=== PATIENT | female | born 1990 | race Caucasian/White ===

== ENCOUNTER 2016-09-24 07:42 | Emergency (ER) | payer BC ==
[2016-09-24 08:36] VITALS: BP 144/74
--- NOTE | 2016-09-24 08:39 | UC ---
Respiratory Complaint HPI - HPI Summary HPI Summary: The patient comes in today for: 1. Cough, sore throat, chest pain: Onset: Yesterday. Palliative/provocative: Eating cough drops helps. Quality: Barking, Region: [place]. Severity: 8/10 with coughing. Time: Cough lasts a few seconds. Associated symptoms: Chest pain: A pressure of the chest, but she states that it is only present with coughing. Fevers: None. Cough: clear mucous. Rhinitis: None. Sore throat is present, but no known strep exposure. * - History of Current Complaint Chief Complaint: UCRespiratory Stated Complaint: COUGH,CONGESTION Time Seen by Provider: 09/24/16 08:19 Hx Obtained From: Patient Hx Last Menstrual Period: Nexplanon ?: No - Allergies/Home Medications Allergies/Adverse Reactions: Allergies Allergy/AdvReac Type Severity Reaction Status Date / Time Amoxicillin Allergy Rash Verified 09/24/16 08:16 Sulfamethoxazole Allergy Rash Verified 09/24/16 08:16 w/Trimethoprim [From Bactrim] Home Medications: Home Medications Acetaminophen 1,000 mg PO Q6H PRN 09/24/16 [History Confirmed 09/24/16] Nexplanon ONCE 09/24/16 [History] Pseudoephedrine HCL ER TAB* [Sudafed 12 Hour*] 120 mg PO BID PRN 09/24/16 [ History Confirmed 09/24/16] PMH/Surg Hx/FS Hx/Imm Hx Previously Healthy: Yes Endocrine History Of: Denies: Diabetes, Thyroid Disease, Hyperthyroidism, Hypothyroidism, Dyslipidemia Cardiovascular History Of: Denies: Cardiac Disorders, Hypertension, Pacemaker/ICD, Myocardial Infarction , Congestive Heart Failure, Atrial Fibrillation, Deep Vein Thrombosis, Bleeding Disorders Respiratory History Of: Denies: COPD, Asthma, Bronchitis, Pneumonia, Pulmonary Embolism GI/ History Of: Denies: Gastroesophageal Reflux, Ulcer, Gastrointestinal Bleed, Gall Bladder Disease, Kidney Stones, Diverticulitis, Renal Disease, Urosepsis Neurological History Of: Denies: TIA, CVA, Dementia, Seizures, Migraine Psychological History Of: Denies: Anxiety, Depression, Bipolar Disorder, Schizophrenia, Post Traumatic Stress Disorder Cancer History Of: Denies: Lung Cancer, Colorectal Cancer, Breast Cancer, Prostate Cancer, Cervical Cancer Other History Of: Negative For: HIV, Hepatitis B, Hepatitis C, Anticoagulant Therapy - Surgical History Surgical History: None - Family History Known Family History: Positive: Hypertension Negative: Cardiac Disease - Social History Occupation: Employed Full-time Alcohol Use: Rare Substance Use Type: None Smoking Status (MU): Never Smoked Tobacco - Immunization History Most Recent Influenza Vaccination: 2016 Review of Systems Constitutional: Negative Skin: Negative Eyes: Negative ENT: Sore Throat Respiratory: Cough Cardiovascular: Chest Pain Gastrointestinal: Negative Genitourinary: Negative All Other Systems Reviewed And Are Negative: Yes Physical Exam Triage Information Reviewed: Yes Appearance: Well-Appearing, No Pain Distress, Well-Nourished Vital Signs: Initial Vital Signs Temp 99.4 F 09/24/16 08:18 Pulse 111 09/24/16 08:18 Resp 18 09/24/16 08:18 BP 144/74 09/24/16 08:18 Pulse Ox 100 09/24/16 08:18 Vital Signs Reviewed: Yes Eyes: Positive: Conjunctiva Clear. Negative: Discharge ENT: Positive: Hearing grossly normal. Negative: Pharyngeal erythema, Nasal congestion, Nasal drainage, TM bulging, TM dull, TM red, Tonsillar swelling, Tonsillar exudate Dental: Negative: Gross Decay/Caries @, Dental Fracture @ Neck: Positive: Supple, Nontender, No Lymphadenopathy. Negative: Nuchal Rigidity Respiratory: Positive: Chest non-tender, Lungs clear, No respiratory distress, No accessory muscle use. Negative: Crackles, Wheezing, Expiration Cardiovascular: Positive: RRR, No Murmur Abdomen Description: Positive: Nontender, No Organomegaly, Soft. Negative: Distended, Guarding Musculoskeletal: Positive: Strength Intact, ROM Intact, No Edema Neurological: Positive: Alert, Muscle Tone Normal Psychological: Positive: Age Appropriate Behavior, Consolable Skin: Negative: rashes, breakdown UC Diagnostic Evaluation - Laboratory O2 Sat by Pulse Oximetry: 100 Respiratory Course/Dx - Course Course Of Treatment: The patient was told that we are not set up well to evaluate chest pain, and she quickly stated that her chest pain is only related to her upper airways--and only a problem when she coughs. - Differential Dx/Diagnosis Provider Diagnoses: Upper viral respiratory infection. Discharge - Discharge Plan Condition: Stable Disposition: HOME Patient Education Materials: Upper Respiratory Infection (ED) Referrals: Mykel Craig MD [Primary Care Provider] - 1 Week (Please see your primary care provider in about a week to see how well you are doing. If you get worse, please be seen sooner.)
== END 2016-09-24 08:59 | disposition home or self-care (01) ==
LOC: UCCORT 07:42
DX: J06.9 Acute upper respiratory infection, unspecified (principal); Z88.1 Allergy status to other antibiotic agents
CPT/HCPCS: 99212; G0463

== ENCOUNTER 2016-09-28 13:14 | Emergency (ER) | payer BC | END 2016-09-28 15:12 | disposition left against medical advice (07) | LOC: UCCORT 13:14 | DX: R05 Cough (principal); Z53.21 Procedure and treatment not carried out due to patient leaving prior to being seen by health care provider | CPT/HCPCS: 99211; G0463 ==

== ENCOUNTER 2018-10-29 09:56 | Emergency (ER) | payer BC ==
[2018-10-29 10:20] VITALS: BP 129/71
--- NOTE | 2018-10-29 11:03 | UC ---
Throat Pain/Nasal Elías HPI - HPI Summary HPI Summary: Since Tuesday, nasal congestion and pressure. No fever. No dental pain. There is no prior sinus surgery. - History of Current Complaint Chief Complaint: UCRespiratory Stated Complaint: SINUSES Time Seen by Provider: 10/29/18 10:53 Hx Obtained From: Patient Hx Last Menstrual Period: 10/19/18 Onset/Duration: Gradual Onset, Lasting Days Severity: Moderate Pain Intensity: 6 Cough: None Associated Signs & Symptoms: Positive: Sinus Discomfort, Nasal Discharge. Negative: Dysphagia, FB Sensation, Drooling, Fever, Vomiting, Rash - Allergies/Home Medications Allergies/Adverse Reactions: Allergies Allergy/AdvReac Type Severity Reaction Status Date / Time amoxicillin Allergy Rash Verified 10/29/18 10:21 Sulfa (Sulfonamide Allergy Rash Verified 10/29/18 10:21 Antibiotics) Home Medications: Home Medications Dm/P-Ephed/Acetaminoph/Doxylam [[employer] Plus Severe 10-12.5-20-650 mg] 1 pow PO 10/29/18 [History] PMH/Surg Hx/FS Hx/Imm Hx Previously Healthy: No - sinusitis in the past. Other History Of: Negative For: HIV, Hepatitis B, Hepatitis C, Anticoagulant Therapy - Surgical History Surgical History: None - Family History Known Family History: Positive: None, Hypertension Negative: Cardiac Disease - Social History Lives: With Family Alcohol Use: Rare Substance Use Type: None Smoking Status (MU): Never Smoked Tobacco - Immunization History Most Recent Influenza Vaccination: 2015 Review of Systems All Other Systems Reviewed And Are Negative: Yes ENT: Positive: Sinus Congestion, Sinus Pain/Tenderness Physical Exam Triage Information Reviewed: Yes Appearance: Well-Appearing, No Pain Distress, Obese Vital Signs: Initial Vital Signs Temp 97.7 F 10/29/18 10:17 Pulse 89 10/29/18 10:17 Resp 18 10/29/18 10:17 BP 129/71 10/29/18 10:17 Pulse Ox 98 10/29/18 10:17 Vital Signs Reviewed: Yes Eyes: Positive: Conjunctiva Clear. Negative: Conjunctiva Inflamed ENT: Positive: Hearing grossly normal, Pharynx normal, Nasal congestion, TMs normal, Sinus tenderness, Uvula midline. Negative: Pharyngeal erythema, Nasal drainage, TM bulging, TM dull, TM red, Tonsillar swelling, Tonsillar exudate, Trismus Neck: Positive: Supple, Nontender, No Lymphadenopathy Respiratory: Positive: Lungs clear, Normal breath sounds, No respiratory distress, No accessory muscle use. Negative: Respiratory distress, Decreased breath sounds, Accessory muscle use, Crackles, Rhonchi, Stridor, Wheezing Cardiovascular: Positive: No Murmur, Pulses Normal, Brisk Capillary Refill Abdomen Description: Positive: No Organomegaly, Soft. Negative: Distended, Guarding Musculoskeletal: Positive: Strength Intact, ROM Intact, No Edema Neurological: Positive: Alert, Muscle Tone Normal. Negative: Fatigued Psychological: Positive: Age Appropriate Behavior Skin: Negative: Rashes Throat Pain/Nasal Course/Dx - Differential Dx/Diagnosis Provider Diagnosis: Sinusitis Discharge - Sign-Out/Discharge Documenting (check all that apply): Patient Departure All imaging exams completed and their final reports reviewed: No Studies - Discharge Plan Condition: Good Disposition: HOME Prescriptions: Cefdinir SUSP* ORALSYR [Omnicef SUSP*] 300 mg PO BID #20 ml Patient Education Materials: Sinusitis (ED) Referrals: Stephanie Ulloa MD [Primary Care Provider] - Additional Instructions: Flonase bid OTC for 10 days and nasal irrigation or netti pots twice a day and if not better in 5-6 days then antibiotics or if you get a fever or sudden worsening of pain. - Billing Disposition and Condition Condition: GOOD Disposition: Home
== END 2018-10-29 11:10 | disposition home or self-care (01) ==
LOC: UCCORT 09:56
DX: J32.9 Chronic sinusitis, unspecified (principal); E66.9 Obesity, unspecified; Z88.0 Allergy status to penicillin; Z88.2 Allergy status to sulfonamides
CPT/HCPCS: 99212; G0463